=== PATIENT | female | born 1975 | race African-American/Black ===

== ENCOUNTER 2018-01-08 09:01 | Emergency (ER) | payer MEDICAID, OTHER ==
[~2018-01-08] VITALS: Ht 162.6 cm; Wt 85.7 kg
[2018-01-08 09:43] VITALS: BP 121/81
[2018-01-08] MEDS ORDERED: KETOROLAC TROMETH 60MG/2ML VIAL IM ONE (11:00)
== END 2018-01-08 10:59 | disposition home or self-care (01) ==
LOC: ER 09:01
DX: S39.012A Strain of muscle, fascia and tendon of lower back, initial encounter (principal); F17.210 Nicotine dependence, cigarettes, uncomplicated; G44.319 Acute post-traumatic headache, not intractable; Z90.710 Acquired absence of both cervix and uterus; V43.52XA Car driver injured in collision with other type car in traffic accident, initial encounter; Y93.89 Activity, other specified; Y92.410 Unspecified street and highway as the place of occurrence of the external cause; Y99.8 Other external cause status
CPT/HCPCS: 70450; 72100; J1885